=== PATIENT | male | born 2000 | race Hispanic/Latino ===

== ENCOUNTER 2022-07-07 05:09 | Inpatient (IN) | payer OTHER, SELFPAY ==
[~2022-07-07] VITALS: Ht 180.3 cm; Wt 76.0 kg
[2022-07-07] MEDS ORDERED: NS 1,000 ML IV ONE (05:30)
[2022-07-07] MEDS ORDERED: ONDANSETRON 4MG 2ML VIAL IV ONE (05:30)
[2022-07-07 06:25] LABS: BASO % 0.9 % (0.0-1.0); EOS # 0.1 10^3/uL (0.0-0.5); EOS % 3.3 % (0.0-3.0); HEMATOCRIT 43.1 % (42.0-52.0); HEMOGLOBIN 14.1 g/dl (13.5-17.5); LYMPH # 1.2 10^3/uL (1.5-5.0); LYMPH % 34.7 % (24.0-44.0); MEAN CORPUSCULAR HEMOGLOBIN 29.8 pg (27.0-33.0); MEAN CORPUSCULAR HGB CONC 32.7 g/dl (32.0-36.5); MEAN CORPUSCULAR VOLUME 91.1 fl (80.0-96.0); MONO # 0.3 10^3/uL (0.0-0.8); MONO % 8.3 % (2.0-8.0); NEUTROPHILS # 1.8 10^3/uL (1.5-8.5); NEUTROPHILS % 52.5 % (36.0-66.0); PLATELET COUNT, AUTOMATED 179 10^3/uL (150-450); RED BLOOD COUNT 4.73 10^6/uL (4.30-6.10); WHITE BLOOD COUNT 3.4 10^3/uL (4.0-10.0)
[2022-07-07 06:45] LABS: AMPHETAMINES LEVEL URINE NEGATIVE (NEGATIVE); BARBITURATES URINE NEGATIVE (NEGATIVE); COCAINE METABOLITE URINE NEGATIVE (NEGATIVE); METHADONE URINE NEGATIVE (NEGATIVE); OPIATES URINE NEGATIVE (NEGATIVE)
[2022-07-07 06:46] LABS: BENZODIAZEPINES URINE NEGATIVE (NEGATIVE); PHENCYCLIDINE URINE NEGATIVE (NEGATIVE)
[2022-07-07 06:47] LABS: ETHYL ALCOHOL (ETHANOL) 0.108 % (0.000-0.010)
[2022-07-07 06:48] LABS: CANNABINOIDS URINE POSITIVE (NEGATIVE)
[2022-07-07 06:49] LABS: ACETAMINOPHEN LEVEL < 2.0 UG/ML (10.0-20.0); ALBUMIN 4.2 G/DL (3.2-5.2); ALKALINE PHOSPHATASE 65 U/L (46-116); ALT/SGPT 15 U/L (7.0-40); AST/SGOT 15 U/L (<34); BILIRUBIN,DIRECT 0.2 MG/DL (<0.4); BILIRUBIN,TOTAL 0.6 MG/DL (0.3-1.2); BLOOD UREA NITROGEN 9 MG/DL (9-23); CALCIUM LEVEL 8.9 MG/DL (8.5-10.1); CARBON DIOXIDE LEVEL 28 MMOL/L (20-31); CHLORIDE LEVEL 106 MMOL/L (98-107); CPK CREATINE PHOSPHOKINASE 141 U/L (46-171); CREATININE FOR GFR 0.56 MG/DL (0.70-1.30); GLOMERULAR FILTRATION RATE > 60.0 (>60); GLUCOSE, FASTING 106 MG/DL (60-100); POTASSIUM SERUM 3.9 MMOL/L (3.5-5.1); SALICYLATE LEVEL < 3.0 MG/DL (<30); SODIUM LEVEL 142 MMOL/L (136-145); TOTAL PROTEIN 6.9 G/DL (5.7-8.2)
[2022-07-07 06:50] LABS: THYROID STIMULATING HORMONE 2.616 uIU/ML (0.55-4.78)
[2022-07-07 06:53] LABS: RSV AMPLIFICATION NEGATIVE (NEGATIVE)
[2022-07-07] MEDS ORDERED: ATOM60CA7 PO (08:55)
[2022-07-07] MEDS ORDERED: HOME MED LIST COMPLETE! XX SCH (09:10)
[2022-07-07 15:23] VITALS: BP 141/90
[2022-07-07 16:34] VITALS: BP_SYST 114; BP_SYST 141; BP_DIAS 75; BP_DIAS 90
[2022-07-07 20:00] VITALS: BP 144/85
[2022-07-08] VITALS: BP 140/88
[2022-07-08 04:00] VITALS: BP 125/78
[2022-07-08 05:38] LABS: HEMATOCRIT 45.7 % (42.0-52.0); HEMOGLOBIN 14.5 g/dl (13.5-17.5); MEAN CORPUSCULAR HEMOGLOBIN 29.1 pg (27.0-33.0); MEAN CORPUSCULAR HGB CONC 31.7 g/dl (32.0-36.5); MEAN CORPUSCULAR VOLUME 91.8 fl (80.0-96.0); PLATELET COUNT, AUTOMATED 174 10^3/uL (150-450); RED BLOOD COUNT 4.98 10^6/uL (4.30-6.10); WHITE BLOOD COUNT 7.2 10^3/uL (4.0-10.0)
[2022-07-08 05:56] LABS: ALKALINE PHOSPHATASE 65 U/L (46-116); ALT/SGPT 13 U/L (7.0-40); AST/SGOT 16 U/L (<34); BILIRUBIN,TOTAL 1.4 MG/DL (0.3-1.2); BLOOD UREA NITROGEN 11 MG/DL (9-23); CALCIUM LEVEL 10.1 MG/DL (8.5-10.1); CARBON DIOXIDE LEVEL 30 MMOL/L (20-31); CHLORIDE LEVEL 102 MMOL/L (98-107); CREATININE FOR GFR 0.77 MG/DL (0.70-1.30); GLOMERULAR FILTRATION RATE > 60.0 (>60); GLUCOSE, FASTING 95 MG/DL (60-100); POTASSIUM SERUM 3.9 MMOL/L (3.5-5.1); SODIUM LEVEL 139 MMOL/L (136-145); TOTAL PROTEIN 6.8 G/DL (5.7-8.2)
[2022-07-08 07:55] VITALS: BP 142/89
[2022-07-08 11:39] VITALS: BP 153/82
[2022-07-08 15:55] VITALS: BP 125/70
== END 2022-07-08 17:58 | disposition home or self-care (01) | DRG 812 ==
LOC: M ED 05:09 → M ED INP 08:18 → ENRESERV 14:11 → M PCU 15:25
PROVIDERS: ADMIT Family Medicine; ATTEND Family Medicine
DX: T39.1X2A Poisoning by 4-Aminophenol derivatives, intentional self-harm, initial encounter (principal); F10.94 Alcohol use, unspecified with alcohol-induced mood disorder; T14.91XA Suicide attempt, initial encounter; T48.5X1A Poisoning by other anti-common-cold drugs, accidental (unintentional), initial encounter; T43.631A Poisoning by methylphenidate, accidental (unintentional), initial encounter; F90.9 Attention-deficit hyperactivity disorder, unspecified type; Z79.899 Other long term (current) drug therapy; Z20.822 Contact with and (suspected) exposure to COVID-19